=== PATIENT | female | born 1965 | race African-American/Black ===

== ENCOUNTER 2017-10-10 11:26 | Emergency (ER) | payer MEDICARE, MEDICAID ==
[~2017-10-10] VITALS: Ht 167.6 cm; Wt 82.6 kg
[~2017-10-10 11:26] MED LIST: BACLOFEN10 MG ORAL; BENADRYL25 MG ORAL; DIAZEPAM10 MG ORAL; GABAPENTIN600 MG ORAL; NORCO 10/3251 EA ORAL
[2017-10-10 11:34] VITALS: BP 147/88
--- NOTE | 2017-10-10 11:49 | Emergency Room Report ---
History of Present Illness General Chief Complaint: General Complaint Source: Patient Present Illness HPI Patient is a 52-year-old female who presented after increased left-sided muscle spasms. Patient states that this had been occurring for several weeks.The patient had been unable to refill refill her medications. Allergies: Coded Allergies: PENICILLINS (Verified Allergy, Unknown, 06/21/16) Uncoded Allergies: PENICILLIN (Allergy, Unknown, Hives, 06/21/16) Generalized urticaria Patient History Past Medical History: see triage record Reviewed Nursing Documentation: PMH: Agreed, PSxH: Agreed Nursing Documentation-PMH Hx Neurological Problems: Yes - Cerebral Palsy Review of Systems All Other Systems: negative except mentioned in HPI Physical Exam Vital Signs Date Time Temp Pulse Resp B/P (MAP) Pulse Ox O2 Delivery O2 Flow Rate FiO2 10/10/17 11:29 98.2 114 20 147/88 99 Room Air 98.2 General Appearance: well appearing, no apparent distress, alert, GCS 15, non- toxic Head: normocephalic, atraumatic ENT: hearing grossly normal, normal voice Neck: full range of motion, supple Respiratory: no respiratory distress, speaking full sentences Cardiovascular #1: normal inspection, normal peripheral pulses, regular rate, rhythm, no edema Gastrointestinal: normal inspection, normal bowel sounds, non tender, soft Musculoskeletal: normal inspection, back normal, no calf tenderness, decreased range of mation - left upper extremity Neurologic: normal inspection, alert, oriented x3, responsive, import/export agent III-XII nml as tested, other - left upper extremity contracture Psychiatric: mood/affect normal Skin: no rash Medical Decision Making Diagnostic Impression: Primary Impression: Muscle spasm Additional Impression: Cerebral palsy ER Course Patient presented for muscle spasm. Differential diagnosis included was not limited to electrolyte abnormality, a medication withdrawal, among others. Patient has a benign exam and does not appear to require any further imaging or laboratory testing at this time. Patient was noted to have evidence of cerebral palsy with contracture of the left upper extremity. The patient was given Valium. The patient is advised that she cannot be given prescriptions would need to follow-up with her primary care physician for medication refills. The patient is advised to follow up with primary care doctor in 1-2 days. Patient is advised to return if any worsening condition or if any changes in status that are concerning. This report is dictated with [employer] printed circuit layout taper software which may occasionally lead to discrepancies related to use of this software. Last Vital Signs Date Time Temp Pulse Resp B/P (MAP) Pulse Ox O2 Delivery O2 Flow Rate FiO2 10/10/17 11:34 98.2 100 20 147/88 99 Room Air 98.2 Status: improved Disposition: HOME, SELF-CARE Condition: Stable Alfred Smith Oct 10, 2017 11:49
[2017-10-10 12:12] VITALS: BP 147/88
== END 2017-10-10 12:10 | disposition home or self-care (01) ==
LOC: EMR 12:05
DX: M62.838 Other muscle spasm (principal); G80.9 Cerebral palsy, unspecified; Z88.0 Allergy status to penicillin
CPT/HCPCS: 99282

== ENCOUNTER 2017-10-25 21:34 | Emergency (ER) | payer MEDICARE, MEDICAID ==
[~2017-10-25] VITALS: Ht 167.6 cm; Wt 84.4 kg
--- NOTE | 2017-10-25 22:40 | Emergency Room Report ---
History of Present Illness General Chief Complaint: Abdominal Pain Source: Patient Present Illness HPI 52-year-old female, history of cerebral palsy, presenting with dysuria for 2 days. Complains of severe burning on urination. No hematuria. No fever no chills. No nausea vomiting or diarrhea. No chest pain or shortness of breath Allergies: Coded Allergies: PENICILLINS (Verified Allergy, Unknown, 06/21/16) Uncoded Allergies: PENICILLIN (Allergy, Unknown, Hives, 06/21/16) Generalized urticaria Patient History Past Medical History: see triage record Past Surgical History: none Pertinent Family History: none Reviewed Nursing Documentation: PMH: Agreed; PSxH: Agreed Nursing Documentation-PMH Hx Neurological Problems: Yes - Cerebral Palsy Review of Systems All Other Systems: negative except mentioned in HPI Physical Exam Vital Signs Date Time Temp Pulse Resp B/P (MAP) Pulse Ox O2 Delivery O2 Flow Rate FiO2 10/25/17 21:59 98.5 113 18 128/79 96 Room Air 98.4 Sp02 EP Interpretation: reviewed, normal General Appearance: normal inspection, well appearing, no apparent distress, alert, GCS 15, non-toxic Head: normocephalic, atraumatic Eyes: bilateral eye normal inspection, bilateral eye PERRL, bilateral eye EOMI ENT: normal ENT inspection, normal pharynx, normal voice, moist mucus membranes Neck: normal inspection, full range of motion, supple Respiratory: normal inspection, lungs clear, normal breath sounds, no respiratory distress, no retraction, no wheezing, speaking full sentences, chest symmetrical Cardiovascular #1: normal inspection, regular rate, rhythm, normal capillary refill Cardiovascular #2: 2+ radial (R), 2+ radial (L) Gastrointestinal: normal inspection, non tender, soft, non-distended, no guarding Genitourinary: no CVA tenderness Musculoskeletal: back normal, other - Left upper extremity with chronic deformity of left arm secondary to cerebral palsy Neurologic: normal inspection, alert, oriented x3, responsive, motor strength/ tone normal, sensory intact, normal gait, speech normal Psychiatric: normal inspection, judgement/insight normal, memory normal Skin: normal inspection, normal color, no rash, warm/dry, well hydrated, normal turgor Medical Decision Making Diagnostic Impression: Primary Impression: Urinary tract infection ER Course 52-year-old female yo F with dysuria DDX: UTI / cystitis vs. pyelo Plan: UA, UCX ER course: Pt remains stable/nontoxic appearing in ED. UA positive Disposition: Patient will be discharged home with prescription of antibiotics. Strict return precautions to discussed with patient such as high fever, chills, abdominal pain, nausea or vomiting. Patient verbalized understanding. Patient instructed to follow up with primary care doctor within 3 days. Patient agrees with plan. Please note that this Emergency Department Report was dictated using [employer] setter automatic technology software, occasionally this can lead to erroneous entry secondary to interpretation by the dictation equipment Laboratory Tests Test 10/25/17 22:05 Urine Color Yellow Urine Appearance Clear Urine pH 5 (4.5-8.0) Urine Specific [place] 1.020 (1.005-1.035) Urine Protein Negative (NEGATIVE) Urine Glucose (UA) Negative (NEGATIVE) Urine Ketones 1+ (NEGATIVE) H Urine Occult Blood 2+ (NEGATIVE) H Urine Nitrite Positive (NEGATIVE) H Urine Bilirubin Negative (NEGATIVE) Urine Urobilinogen Normal MG/DL (0.0-1.0) Urine Leukocyte Esterase 1+ (NEGATIVE) H Urine RBC 5-10 /HPF (0 - 2) H Urine WBC 5-10 /HPF (0 - 2) H Urine Squamous Epithelial Cells Few /LPF (NONE/OCC) Urine Bacteria Moderate /HPF (NONE) H Last Vital Signs Date Time Temp Pulse Resp B/P (MAP) Pulse Ox O2 Delivery O2 Flow Rate FiO2 10/25/17 21:59 98.5 113 18 128/79 96 Room Air 98.4 Disposition: HOME, SELF-CARE Condition: Improved Scripts Nitrofurantoin Monohyd/M-Cryst* (MACROBID 100 MG*) 100 Mg Capsule 100 MG ORAL EVERY 12 HOURS for 7 Days, #14 CAP Prov: Chilo Chavis M.D. 10/25/17 Chilo Chavis M.D. Oct 25, 2017 22:39
[2017-10-25 22:51] LABS: APPEARANCE,URINE CLEAR; BILIRUBIN, URINE NEGATIVE (NEGATIVE); GLUCOSE, URINE (UA) NEGATIVE (NEGATIVE); KETONES,URINE 1+ (NEGATIVE); LEUKOCYTE ESTERASE ,URINE 1+ (NEGATIVE); NITRITE,URINE POSITIVE (NEGATIVE); PH,URINE 5 (4.5-8.0); PROTEIN,URINE NEGATIVE (NEGATIVE); UROBILINOGEN,URINE NORMAL MG/DL (0.0-1.0)
[2017-10-25 22:53] LABS: COLOR,URINE YELLOW
[2017-10-25] MEDS ORDERED: NITROFURANTOIN100 M2 ORAL (23:05)
[2017-10-25 23:15] VITALS: BP 122/79
[2017-10-25 23:20] VITALS: BP 122/79
--- NOTE | 2017-10-26 16:31 | Cardiology Report ---
APPROVED REPORT EKG Measurement Heart [id number] Sinus tachycardia Possible Lateral infarct, age undetermined Abnormal ECG
== END 2017-10-25 23:20 | disposition home or self-care (01) ==
LOC: EMR 22:10
DX: N39.0 Urinary tract infection, site not specified (principal); G80.9 Cerebral palsy, unspecified; Z88.0 Allergy status to penicillin
CPT/HCPCS: 81003; 87086; 87181; 93005; 99283